=== PATIENT | male | born 1980 | race Caucasian/White ===

== ENCOUNTER 2019-06-30 07:37 | Inpatient (IN) | payer MEDICAID ==
[~2019-06-30] VITALS: Ht 172.7 cm; Wt 94.8 kg
[~2019-06-30 07:37] MED LIST: CLON-441 PO; CLOZ100 PO; DIVA-78 PO; HALO10 PO; LITH300T4 PO; RISP2 PO
[2019-06-30 08:58] VITALS: BP 137/100
[2019-06-30] MEDS ORDERED: LORazepam 2 MG TABLET PO PRN (09:30)
[2019-06-30] MEDS: HALOPERIDOL 5 MG TABLET PO PRN ×2 (10:10→23:04)
[2019-06-30] MEDS: ARIPiprazole 10 MG TABLET PO SCH (10:44)
[2019-06-30] MEDS ORDERED: DOCUSATE SODIUM 100 MG CAPSULE PO PRN (11:45)
[2019-06-30] MEDS ORDERED: LOPERAMIDE HCL 2 MG CAPSULE PO PRN (11:45)
[2019-06-30] MEDS ORDERED: MAG HYDROX/AL HYDROX/SIMETH ES 30 ML SUSPENSION UDCUP PO PRN (11:45)
[2019-06-30] MEDS ORDERED: PETROLATUM,WHITE 28 GM JELLY TP PRN (11:45)
[2019-06-30] MEDS ORDERED: ALBUTEROL SULFATE HFA 90 MCG/PUFF 8 GM INHALER IH PRN (11:45)
[2019-06-30] MEDS ORDERED: ACETAMINOPHEN 325 MG TABLET PO PRN (11:45)
[2019-06-30] MEDS ORDERED: NICOTINE 14 MG/24 HOUR PATCH TD PRN (11:45)
[2019-06-30] MEDS ORDERED: ONDANSETRON HCL 4 MG TABLET PO PRN (11:45)
[2019-06-30] MEDS ORDERED: GuaiFENesin/D-METHORPHAN [SUGAR-FREE] 200-20MG/10 ML SYRUP UDCUP PO PRN (11:45)
[2019-06-30] MEDS ORDERED: IBUPROFEN 400 MG TABLET PO PRN (11:45)
[2019-06-30] MEDS ORDERED: MAGNESIUM HYDROXIDE SUSPENSION 30 ML UDCUP PO PRN (11:45)
[2019-06-30 17:25] VITALS: BP 118/85
[2019-06-30] MEDS: CloNIDine HCL 0.1 MG TABLET PO SCH (17:25)
[2019-06-30] MEDS: ZOLPIDEM TARTRATE 10 MG TABLET PO PRN (21:26)
[2019-07-01 00:38] VITALS: BP 138/79
[2019-07-01] MEDS: HALOPERIDOL 5 MG TABLET PO PRN (03:07)
[2019-07-01 08:00] LABS: BASOPHILS % (AUTO) 0.1 % (0.0-2.0); EOSINOPHILS % (AUTO) 0.1 % (1.0-6.0); HEMATOCRIT 37.8 % (41-53); HEMOGLOBIN 12.8 g/dL (13.5-17.5); LYMPHOCYTES # (AUTO) 3.1 K/uL (1.0-4.8); LYMPHOCYTES % (AUTO) 40.2 % (22.0-44.0); MEAN CORPUSCULAR HEMOGLOBIN 29.2 pg (26.0-34.0); MEAN CORPUSCULAR HGB CONC 33.9 G/dL (31.0-37.0); MEAN CORPUSCULAR VOLUME 86 fL (80-100); MONOCYTES # (AUTO) 0.5 K/uL (0.1-1.0); MONOCYTES % (AUTO) 6.9 % (2.0-9.0); NEUTROPHILS # (AUTO) 4.1 K/uL (1.8-7.7); NEUTROPHILS % (AUTO) 52.7 % (40.0-70.0); PLATELET COUNT (AUTO) 302 K/uL (150-450); RED BLOOD CELL COUNT(AUTO) 4.38 MIL/uL (4.50-5.90); RED CELL DISTRIBUTION WIDTH 15.3 % (11.5-14.5)
[2019-07-01] MEDS: ARIPiprazole 10 MG TABLET PO SCH (08:13)
[2019-07-01] MEDS: CloNIDine HCL 0.1 MG TABLET PO SCH ×2 (08:13→16:42)
[2019-07-01 08:20] VITALS: BP 133/92
[2019-07-01 08:49] LABS: HEMOGLOBIN A1C 5.8 % (4.5-6.2)
[2019-07-01 09:14] LABS: ALANINE AMINOTRANSFERASE 51 U/L (12-78); ALBUMIN 3.7 g/dL (3.4-5.0); ALKALINE PHOSPHATASE 83 U/L (46-116); ANION GAP 8 mmol/L (8-16); BILIRUBIN,TOTAL 0.4 mg/dL (0.1-1.0); CARBON DIOXIDE 29 mmol/L (22-29); CHLORIDE 101 mmol/L (98-107); CHOL/HDL RATIO 4.9 (4.2-7.3); CHOLESTEROL 202 mg/dL (131-200); CREATININE 0.78 mg/dL (0.60-1.30); GLOMERULAR FILTR. RATE CALC > 60 mL/min (>60); GLUCOSE,RANDOM 103 mg/dL (70-110); HDL CHOLESTEROL 41 mg/dL (40-60); LDL CHOL (CALC.) 136 mg/dL (0-130); POTASSIUM 4.4 mmol/L (3.5-5.1); SODIUM SERUM 138 mmol/L (136-145); THYROID STIMULATING HORMONE 3.93 uIU/mL (0.36-3.74); TRIGLYCERIDES 125 mg/dL (15-150)
[2019-07-01 09:28] LABS: ASPARTATE AMINOTRANSFERASE 53 U/L (15-37); UREA NITROGEN, BLOOD 9 mg/dL (7-18)
[2019-07-01 16:41] VITALS: BP 126/84
[2019-07-01] MEDS: HALOPERIDOL 10 MG TABLET PO SCH (16:42)
[2019-07-01] MEDS: BENZTROPINE MESYLATE 1 MG TABLET PO SCH (16:42)
[2019-07-01] MEDS: PROPRANOLOL HCL 20 MG TABLET PO SCH (17:01)
[2019-07-01 17:46] VITALS: BP 120/87
[2019-07-01] MEDS: DIVALPROEX SODIUM 500 MG DR TABLET PO SCH (20:48)
[2019-07-02 00:14] VITALS: BP 139/80
[2019-07-02] MEDS: ZOLPIDEM TARTRATE 10 MG TABLET PO PRN (00:22)
[2019-07-02] MEDS ORDERED: INFLUENZA VIRUS VACCINE QVS 2019-20 (3YR+)/PF 60 MCG/0.5 ML SYRINGE IM ONE (03:45)
[2019-07-02] MEDS: PROPRANOLOL HCL 20 MG TABLET PO SCH ×2 (08:17→16:30)
[2019-07-02] MEDS: CloNIDine HCL 0.1 MG TABLET PO SCH ×2 (08:17→16:30)
[2019-07-02] MEDS: HALOPERIDOL 10 MG TABLET PO SCH ×2 (08:17→16:30)
[2019-07-02] MEDS: DIVALPROEX SODIUM 500 MG DR TABLET PO SCH ×2 (08:17→20:23)
[2019-07-02] MEDS: BENZTROPINE MESYLATE 1 MG TABLET PO SCH ×2 (08:17→16:30)
[2019-07-02 08:22] VITALS: BP 133/85
[2019-07-02 16:13] VITALS: BP 126/77
[2019-07-03 06:11] VITALS: BP 136/96
[2019-07-03 08:22] VITALS: BP 142/81
[2019-07-03] MEDS: BENZTROPINE MESYLATE 1 MG TABLET PO SCH ×2 (08:53→16:02)
[2019-07-03] MEDS: CloNIDine HCL 0.1 MG TABLET PO SCH ×2 (08:53→16:02)
[2019-07-03] MEDS: DIVALPROEX SODIUM 500 MG DR TABLET PO SCH ×2 (08:54→20:20)
[2019-07-03] MEDS: PROPRANOLOL HCL 20 MG TABLET PO SCH ×2 (08:54→16:02)
[2019-07-03] MEDS: HALOPERIDOL 10 MG TABLET PO SCH ×2 (08:54→16:02)
[2019-07-03 16:11] VITALS: BP 122/85
[2019-07-04 06:34] VITALS: BP 108/77
[2019-07-04 08:44] VITALS: BP 115/68
[2019-07-04] MEDS: PROPRANOLOL HCL 20 MG TABLET PO SCH ×2 (08:47→16:58)
[2019-07-04] MEDS: HALOPERIDOL 10 MG TABLET PO SCH ×2 (08:48→16:58)
[2019-07-04] MEDS: BENZTROPINE MESYLATE 1 MG TABLET PO SCH ×2 (08:48→16:58)
[2019-07-04] MEDS: CloNIDine HCL 0.1 MG TABLET PO SCH ×2 (08:48→16:58)
[2019-07-04] MEDS: DIVALPROEX SODIUM 500 MG DR TABLET PO SCH ×2 (08:48→20:27)
[2019-07-04 16:01] VITALS: BP 100/62
[2019-07-04 16:58] VITALS: BP 115/90
[2019-07-05 07:14] VITALS: BP 110/78
[2019-07-05 08:00] VITALS: BP 110/66
[2019-07-05] MEDS: CloNIDine HCL 0.1 MG TABLET PO SCH ×2 (08:18→17:11)
[2019-07-05] MEDS: DIVALPROEX SODIUM 500 MG DR TABLET PO SCH ×2 (08:18→20:18)
[2019-07-05] MEDS: HALOPERIDOL 10 MG TABLET PO SCH ×2 (08:18→17:11)
[2019-07-05] MEDS: PROPRANOLOL HCL 20 MG TABLET PO SCH ×2 (08:18→18:13)
[2019-07-05] MEDS: BENZTROPINE MESYLATE 1 MG TABLET PO SCH ×2 (08:18→17:10)
[2019-07-05 16:02] VITALS: BP 118/76
[2019-07-06 06:07] VITALS: BP 92/60
[2019-07-06 08:16] VITALS: BP 115/68
[2019-07-06] MEDS: BENZTROPINE MESYLATE 1 MG TABLET PO SCH (08:30)
[2019-07-06] MEDS: DIVALPROEX SODIUM 500 MG DR TABLET PO SCH ×2 (08:30→20:52)
[2019-07-06] MEDS: HALOPERIDOL 10 MG TABLET PO SCH (08:30)
[2019-07-06] MEDS: PROPRANOLOL HCL 20 MG TABLET PO SCH ×2 (08:30→17:56)
[2019-07-06] MEDS: CloNIDine HCL 0.1 MG TABLET PO SCH ×2 (08:31→17:56)
[2019-07-06] MEDS ORDERED: DIVA-76 PO (15:10)
[2019-07-06] MEDS ORDERED: RISP3 PO (15:10)
[2019-07-06] MEDS ORDERED: OLANZapine 5 MG RAPDIS TABLET PO PRN (15:15)
[2019-07-06 16:38] VITALS: BP 117/88
[2019-07-07 00:02] VITALS: BP 128/63
[2019-07-07 08:26] VITALS: BP 126/70
[2019-07-07] MEDS ORDERED: CloZAPine 25 MG TABLET PO SCH (09:00)
[2019-07-07 09:45] VITALS: BP 111/68
[2019-07-07] MEDS: CloNIDine HCL 0.1 MG TABLET PO SCH ×2 (09:46→16:08)
[2019-07-07] MEDS: DIVALPROEX SODIUM 500 MG DR TABLET PO SCH ×2 (09:46→20:10)
[2019-07-07] MEDS: PROPRANOLOL HCL 20 MG TABLET PO SCH ×2 (09:46→16:08)
[2019-07-07 16:13] VITALS: BP 110/74
[2019-07-08] VITALS (7 sets, daily range): BP systolic 86–127; BP diastolic 60–78
[2019-07-08] MEDS: PROPRANOLOL HCL 20 MG TABLET PO SCH ×2 (08:26→17:00)
[2019-07-08] MEDS: MULTIVITAMINS WITH IRON TABLET PO SCH (08:26)
[2019-07-08] MEDS: CloNIDine HCL 0.1 MG TABLET PO SCH ×2 (08:26→17:00)
[2019-07-08] MEDS: DIVALPROEX SODIUM 500 MG DR TABLET PO SCH ×2 (08:26→20:45)
[2019-07-08] MEDS ORDERED: CloZAPine 25 MG TABLET PO SCH ×2 (09:00→21:00)
[2019-07-09 08:26] VITALS: BP 112/62
[2019-07-09] MEDS: MULTIVITAMINS WITH IRON TABLET PO SCH (08:29)
[2019-07-09] MEDS: DIVALPROEX SODIUM 500 MG DR TABLET PO SCH ×2 (08:29→20:35)
[2019-07-09] MEDS: PROPRANOLOL HCL 20 MG TABLET PO SCH ×2 (08:29→17:00)
[2019-07-09] MEDS: CloNIDine HCL 0.1 MG TABLET PO SCH ×2 (08:29→16:36)
[2019-07-09] MEDS ORDERED: CloZAPine 25 MG TABLET PO SCH ×2 (09:00→21:00)
[2019-07-09 16:09] VITALS: BP 98/65
[2019-07-09 17:30] VITALS: BP 89/64
[2019-07-10 00:36] VITALS: BP 139/79
[2019-07-10] MEDS: ZOLPIDEM TARTRATE 10 MG TABLET PO PRN (02:13)
[2019-07-10 07:53] LABS: BASOPHILS % (AUTO) 0.1 % (0.0-2.0); EOSINOPHILS % (AUTO) 0 % (1.0-6.0); HEMATOCRIT 42.4 % (41-53); HEMOGLOBIN 13.9 g/dL (13.5-17.5); LYMPHOCYTES # (AUTO) 2.8 K/uL (1.0-4.8); LYMPHOCYTES % (AUTO) 36.5 % (22.0-44.0); MEAN CORPUSCULAR HEMOGLOBIN 28.4 pg (26.0-34.0); MEAN CORPUSCULAR HGB CONC 32.8 G/dL (31.0-37.0); MEAN CORPUSCULAR VOLUME 87 fL (80-100); MONOCYTES # (AUTO) 0.6 K/uL (0.1-1.0); MONOCYTES % (AUTO) 7.2 % (2.0-9.0); NEUTROPHILS # (AUTO) 4.4 K/uL (1.8-7.7); NEUTROPHILS % (AUTO) 56.2 % (40.0-70.0); PLATELET COUNT (AUTO) 229 K/uL (150-450); RED CELL DISTRIBUTION WIDTH 14.9 % (11.5-14.5)
[2019-07-10] MEDS: CloZAPine 25 MG TABLET PO SCH ×2 (08:26→20:17)
[2019-07-10] MEDS: CloNIDine HCL 0.1 MG TABLET PO SCH ×2 (08:26→17:01)
[2019-07-10] MEDS: PROPRANOLOL HCL 20 MG TABLET PO SCH ×2 (08:26→17:01)
[2019-07-10] MEDS: DIVALPROEX SODIUM 500 MG DR TABLET PO SCH ×2 (08:26→20:18)
[2019-07-10] MEDS: MULTIVITAMINS WITH IRON TABLET PO SCH (08:26)
[2019-07-10 08:38] VITALS: BP_SYST 133; BP_SYST 139; BP_DIAS 71; BP_DIAS 84
[2019-07-10 16:40] VITALS: BP 114/69
[2019-07-11 09:00] VITALS: BP 105/73
[2019-07-11] MEDS: CloNIDine HCL 0.1 MG TABLET PO SCH ×2 (09:00→17:11)
[2019-07-11] MEDS: PROPRANOLOL HCL 20 MG TABLET PO SCH ×2 (09:00→17:11)
[2019-07-11] MEDS: MULTIVITAMINS WITH IRON TABLET PO SCH (09:03)
[2019-07-11] MEDS: DIVALPROEX SODIUM 500 MG DR TABLET PO SCH ×2 (09:03→20:28)
[2019-07-11] MEDS: CloZAPine 25 MG TABLET PO SCH ×2 (09:04→20:28)
[2019-07-11 16:35] VITALS: BP 112/75
[2019-07-12] MEDS: ZOLPIDEM TARTRATE 10 MG TABLET PO PRN (00:15)
[2019-07-12 00:31] VITALS: BP 120/82
[2019-07-12 08:22] VITALS: BP 104/71
[2019-07-12] MEDS: MULTIVITAMINS WITH IRON TABLET PO SCH (08:34)
[2019-07-12] MEDS: PROPRANOLOL HCL 20 MG TABLET PO SCH ×2 (08:34→17:00)
[2019-07-12] MEDS: DIVALPROEX SODIUM 500 MG DR TABLET PO SCH ×2 (08:35→20:21)
[2019-07-12] MEDS: CloNIDine HCL 0.1 MG TABLET PO SCH ×2 (08:36→17:10)
[2019-07-12] MEDS ORDERED: CloZAPine 25 MG TABLET PO SCH (09:00)
[2019-07-12 16:17] VITALS: BP 101/72
[2019-07-12] MEDS ORDERED: CloZAPine 100 MG TABLET PO SCH (21:00)
[2019-07-13 04:06] VITALS: BP 108/70
[2019-07-13 08:01] VITALS: BP 106/62
[2019-07-13] MEDS: DIVALPROEX SODIUM 500 MG DR TABLET PO SCH ×2 (08:19→20:09)
[2019-07-13] MEDS: MULTIVITAMINS WITH IRON TABLET PO SCH (08:19)
[2019-07-13] MEDS: CloNIDine HCL 0.1 MG TABLET PO SCH ×2 (08:37→16:38)
[2019-07-13] MEDS: PROPRANOLOL HCL 20 MG TABLET PO SCH (08:37)
[2019-07-13] MEDS ORDERED: CloZAPine 25 MG TABLET PO SCH (09:00)
[2019-07-13 16:10] VITALS: BP 105/77
[2019-07-13] MEDS: PROPRANOLOL HCL 10 MG TABLET PO SCH (16:38)
[2019-07-13] MEDS ORDERED: CloZAPine 100 MG TABLET PO SCH ×2 (21:00)
[2019-07-14 05:43] VITALS: BP 121/61
[2019-07-14 07:57] VITALS: BP 112/80
[2019-07-14] MEDS: PROPRANOLOL HCL 10 MG TABLET PO SCH ×2 (08:10→17:05)
[2019-07-14] MEDS: MULTIVITAMINS WITH IRON TABLET PO SCH (08:10)
[2019-07-14] MEDS: DIVALPROEX SODIUM 500 MG DR TABLET PO SCH ×2 (08:10→17:05)
[2019-07-14] MEDS: CloNIDine HCL 0.1 MG TABLET PO SCH ×2 (08:10→17:05)
[2019-07-14] MEDS ORDERED: CloZAPine 25 MG TABLET PO SCH ×2 (09:00)
[2019-07-14 13:19] VITALS: BP 112/80
[2019-07-14 16:00] VITALS: BP 131/77
[2019-07-14] MEDS: CloZAPine 100 MG TABLET PO SCH (17:05)
[2019-07-14] MEDS ORDERED: CloZAPine 100 MG TABLET PO SCH (21:00)
[2019-07-15 03:34] VITALS: BP 134/87
[2019-07-15 08:20] VITALS: BP 116/81
[2019-07-15] MEDS: CloNIDine HCL 0.1 MG TABLET PO SCH ×2 (08:29→16:33)
[2019-07-15] MEDS: DIVALPROEX SODIUM 500 MG DR TABLET PO SCH ×2 (08:29→16:33)
[2019-07-15] MEDS: MULTIVITAMINS WITH IRON TABLET PO SCH (08:29)
[2019-07-15] MEDS: PROPRANOLOL HCL 10 MG TABLET PO SCH ×2 (08:29→16:33)
[2019-07-15] MEDS: CloZAPine 100 MG TABLET PO SCH ×2 (08:29→20:19)
[2019-07-15] MEDS ORDERED: CloZAPine 100 MG TABLET PO SCH (09:00)
[2019-07-15 16:15] VITALS: BP 118/64
[2019-07-16 00:36] VITALS: BP 130/62
[2019-07-16 08:02] LABS: BASOPHILS % (AUTO) 0.3 % (0.0-2.0); EOSINOPHILS % (AUTO) 0 % (1.0-6.0); HEMATOCRIT 37.6 % (41-53); HEMOGLOBIN 12.5 g/dL (13.5-17.5); LYMPHOCYTES # (AUTO) 3.3 K/uL (1.0-4.8); LYMPHOCYTES % (AUTO) 44.2 % (22.0-44.0); MEAN CORPUSCULAR HEMOGLOBIN 28.9 pg (26.0-34.0); MEAN CORPUSCULAR HGB CONC 33.3 G/dL (31.0-37.0); MEAN CORPUSCULAR VOLUME 87 fL (80-100); MONOCYTES # (AUTO) 0.7 K/uL (0.1-1.0); MONOCYTES % (AUTO) 9.4 % (2.0-9.0); NEUTROPHILS # (AUTO) 3.5 K/uL (1.8-7.7); NEUTROPHILS % (AUTO) 46.1 % (40.0-70.0); PLATELET COUNT (AUTO) 261 K/uL (150-450); RED BLOOD CELL COUNT(AUTO) 4.34 MIL/uL (4.50-5.90); RED CELL DISTRIBUTION WIDTH 14.7 % (11.5-14.5)
[2019-07-16] MEDS: CloNIDine HCL 0.1 MG TABLET PO SCH ×2 (08:07→16:21)
[2019-07-16] MEDS: MULTIVITAMINS WITH IRON TABLET PO SCH (08:07)
[2019-07-16] MEDS: DIVALPROEX SODIUM 500 MG DR TABLET PO SCH ×2 (08:08→16:21)
[2019-07-16] MEDS: PROPRANOLOL HCL 10 MG TABLET PO SCH ×2 (08:08→16:21)
[2019-07-16] MEDS: CloZAPine 100 MG TABLET PO SCH ×2 (08:08→20:42)
[2019-07-16 08:56] VITALS: BP 125/76
[2019-07-16 16:13] VITALS: BP 121/86
[2019-07-17 06:30] VITALS: BP 110/75
[2019-07-17] MEDS: PROPRANOLOL HCL 10 MG TABLET PO SCH ×2 (08:43→16:26)
[2019-07-17] MEDS: CloZAPine 100 MG TABLET PO SCH ×2 (08:43→20:25)
[2019-07-17] MEDS: DIVALPROEX SODIUM 500 MG DR TABLET PO SCH ×2 (08:43→16:26)
[2019-07-17] MEDS: MULTIVITAMINS WITH IRON TABLET PO SCH (08:43)
[2019-07-17] MEDS: CloNIDine HCL 0.1 MG TABLET PO SCH ×2 (08:43→16:26)
[2019-07-17 08:57] VITALS: BP 121/81
[2019-07-17] MEDS ORDERED: CloZAPine 25 MG TABLET PO SCH (09:00)
[2019-07-17 17:07] VITALS: BP 118/81
[2019-07-17] MEDS ORDERED: CloZAPine 100 MG TABLET PO SCH (21:00)
[2019-07-18 01:19] VITALS: BP 117/79
[2019-07-18 08:00] VITALS: BP 119/71
[2019-07-18] MEDS ORDERED: CloZAPine 25 MG TABLET PO SCH (09:00)
[2019-07-18] MEDS: CloNIDine HCL 0.1 MG TABLET PO SCH ×2 (09:12→17:14)
[2019-07-18] MEDS: DIVALPROEX SODIUM 500 MG DR TABLET PO SCH ×2 (09:12→17:14)
[2019-07-18] MEDS: PROPRANOLOL HCL 10 MG TABLET PO SCH ×2 (09:12→17:14)
[2019-07-18] MEDS: CloZAPine 100 MG TABLET PO SCH ×2 (09:12→20:25)
[2019-07-18] MEDS: MULTIVITAMINS WITH IRON TABLET PO SCH (09:12)
[2019-07-18 16:32] VITALS: BP 114/78
[2019-07-18] MEDS ORDERED: CloZAPine 100 MG TABLET PO SCH (21:00)
[2019-07-19] MEDS: PROPRANOLOL HCL 10 MG TABLET PO SCH (08:32)
[2019-07-19] MEDS: DIVALPROEX SODIUM 500 MG DR TABLET PO SCH (08:32)
[2019-07-19] MEDS: CloZAPine 100 MG TABLET PO SCH (08:32)
[2019-07-19] MEDS: MULTIVITAMINS WITH IRON TABLET PO SCH (08:32)
[2019-07-19] MEDS: CloNIDine HCL 0.1 MG TABLET PO SCH (08:32)
[2019-07-19 08:35] VITALS: BP 121/72
[2019-07-19] MEDS ORDERED: CloZAPine 100 MG TABLET PO SCH ×2 (09:00→21:00)
[2019-07-19] MEDS ORDERED: CLOZ100 PO (09:57)
[2019-07-19] MEDS ORDERED: VALP250C48 PO (10:00)
[2019-07-19] MEDS ORDERED: CLON0.1T83 PO (10:02)
[2019-07-19] MEDS ORDERED: MVITFE PO (10:03)
[2019-07-19] MEDS ORDERED: PROP10TA73 PO (10:03)
== END 2019-07-19 15:10 | disposition home or self-care (01) | DRG 750 ==
LOC: B2S 09:26
PROVIDERS: ADMIT Psychiatry & Neurology Psychiatry; ATTEND Psychiatry & Neurology Psychiatry
DX: F20.0 Paranoid schizophrenia (principal); Z59.0 Homelessness; E78.5 Hyperlipidemia, unspecified; I10 Essential (primary) hypertension; R45.87 Impulsiveness; Z79.899 Other long term (current) drug therapy; Z91.19 Patient's noncompliance with other medical treatment and regimen
CPT/HCPCS: 80159; 83036; 84443